=== PATIENT | male | born 1945 | race Caucasian/White ===

== ENCOUNTER 2016-10-20 10:13 | Day surgery (SDC) | payer MEDICARE ==
[~2016-10-20] VITALS: Ht 170.2 cm; Wt 83.9 kg
--- NOTE | 2016-10-20 14:24 | Operative Note ---
Procedure/Operative Record Date of Procedure: 10/20/16 Referring physician: Dr. Patel Pre-op diagnosis: Carpal tunnel syndrome, left wrist Post-op diagnosis: Carpal tunnel syndrome, left wrist Procedure performed: Open carpal tunnel release, left wrist Surgeon: Andrea Mccollum MD Senior Android Developer(s): Patti Ramirez Anesthesia: Biers block with IV sedation Indications: Patient is a 71-year-old male with LEFT carpal tunnel syndrome with symptoms for over 2 years. EMG/NCV results confirmed moderate to severe carpal tunnel syndrome on the LEFT side. Patient failed to respond adequately to conservative management. Therefore the carpal tunnel release surgery was necessary to relieve symptoms, preserve the remaining fibers of the median nerve, improve function and decrease the pain, paresthesias and weakness and to prevent permanent nerve damage. Findings: The intraoperative findings showed the median nerve to be very tightly compressed and hyperemic. The flexor retinaculum was noted to be thick and tight. There was mild synovitis in the carpal tunnel. There was no evidence of any space-occupying lesions within the carpal tunnel. Description of procedure: On the day of the surgery the patient and his were met in the preoperative area. Patient was positively identified and the operative site was marked and initialed by me. A physical examination was performed and the chart was updated. I again discussed the procedure, risks and benefits and alternatives with the patient and his . The complications discussed include but are not limited to - bleeding, injury to nerves, blood vessels and tendons, infection, wound dehiscence [wound coming apart], incomplete relief/continued pain, persistent numbness, palmar hypersensitivity, pillar pain, DVT/PE, complex regional pain syndrome(CRPS), worsening of nerve damage, failure of the condition to improve, incomplete return of function, bowstringing of tendons, weakness of technical system analyst strength, recurrence, failure of the surgery to accomplish the desired goals, decreased use of the hand, loss of use of the arm, loss of the hand or arm, loss of life. Likely need for further surgery in the future has been discussed. I've indicated to the patient where the proposed incision would be made and also discussed the possibility of extending the incision if needed to accomplish an effective release. I have discussed how the goal of surgery is to protect the fibers which have remained healthy and hopefully reverse the symptoms of the fibers which are compromised but still recoverable. I have explained that, fibers that are permanently damaged will not recover. Patient asked appropriate questions and all have been answered by me. Patient wished to proceed with the surgery. Consent form was reviewed and signed. The patient was brought to the operating room and placed supine on the operating table. The LEFT upper extremity was placed over a side table. All the bony prominences were well-padded. The patient had a Dayan's block anesthesia and IV sedation administered by the rig welder. Please see nursing records for the total tourniquet time. The LEFT upper extremity was prepped and draped in the usual sterile fashion. A preprocedure timeout was performed as per hospital policy. The skin incision was marked using the Baldwin's landmarks, just ulnar to the thenar crease. Baldwin's landmarks were utilized and a skin incision was made parallel and just ulnar to the thenar crease with a 15 blade. Blunt tissue dissection was carried through the subcutaneous tissue down to the palmar fascia. The palmar fascia was incised with the knife to reveal the transverse carpal ligament. The transverse carpal ligament was adequately exposed and then incised with the knife just enough to expose the median nerve. We then protected the median nerve with a freer elevator and extended the incision on the ulnar aspect of the nerve using the knife. We then completed the division of the transverse carpal ligament proximally using a pair of tenotomy scissors. The transverse carpal ligament was contiguous with the antebrachial fascia- the skin was lifted up with a retractor, and the antebrachial fascia visualized and incised. A complete release proximally was confirmed by easily obtaining side to side movement of the proximal carpal tunnel segments. Attention was then directed distally. Again, we incised the distal aspect of the transverse carpal ligament using the tenotomy scissors. Fat demarcating the end of the carpal tunnel was identified and we ensured that the motor branch was not endangered by any anatomic variation. We also confirmed that we had free side to side movement of the entire transverse carpal tunnel ligament segments. Inspection of the carpal tunnel contents showed hyperemic changes in the nerve and a mild degree of synovitis of the flexor tendons. There were no space-occupying lesion within the carpal tunnel. The tourniquet was then deflated and hemostasis was obtained with the bipolar diathermy. We then irrigated the wound with normal saline and the skin was closed with a running 4-0 nylon suture. The skin and soft tissue around the incision were then infiltrated with 10 mL of 0.5 percent Marcaine for postoperative pain relief. Sterile dressings and a compression bandage was applied. The tourniquet cuff was removed from the arm. The patient was then transferred onto the [facility] and transported to the postoperative recovery area in stable condition. The swab, instrument and needle counts were correct according to the scrub team at the end of the procedure. Patient tolerated the procedure well and there were no immediate complications. Patient was discharged home with appropriate written instructions after a period of observation in the postoperative area. Follow-up in my office in 3-4 days time for change of dressings and then in 10-14 days time for removal of sutures. EBL (ml): 5 Implant: None Complications: None Specimens: None at [id number]
[2016-10-20 15:47] VITALS: BP 138/76
== END 2016-10-20 13:55 | disposition home or self-care (01) ==
LOC: SDC 10:13
PROC: 01N50ZZ Release Median Nerve, Open Approach (ICD-10-PCS; principal; 2016-10-20)
DX: G56.02 Carpal tunnel syndrome, left upper limb (principal)

== ENCOUNTER → 2016-11-03 | Outpatient (CLI) | payer MEDICARE ==
--- NOTE | 2016-11-03 17:59 | RADIOLOGY REPORT PS360 ---
MRI-C-SPINE W/O HISTORY: Neck pain with bilateral arm and leg numbness and 13 spleen. Entire left side of the body is numb. CERVICAL OSTEOPHYTE ORDERING PHYSICIAN: Chance Patel MD PATIENT AGE: 71 years COMPARISON: None TECHNIQUE: Standard multiplanar multiecho sequences are performed without contrast. 3-D MIP and myelographic images are also rendered and reviewed FINDINGS: There is normal alignment. There is prominent T1 isointensity and T2 hypointensity along the posterior aspect of the odontoid process and the body of C2 resulting in SEVERE canal stenosis at the C1-C2 level. The canal measures approximately 4 mm with severe compression upon the upper cervical cord and increased T2 signal of the cervical cord. This area of abnormal signal intensity measures 2.4 cm cephalad to caudad and 0.8 cm in AP dimension and 17 mm transverse and is somewhat more prominent toward the right but is present in both right and left aspect of the anterior canal. This is inferior to the clivus. This may represent pannus formation. C2-C3: Bulging disc with broad-based right paracentral disc protrusion: Right lateral recess narrowing abutting the anterior aspect of the cord on the right. C3-C4: Bulging disc with left-sided uncovertebral hypertrophy with left-sided foraminal narrowing. C4-C5: Degenerative disc disease with bulging disc along with facet and ligamentum flavum hypertrophy with bilateral foraminal narrowing. C5-C6: Degenerative disc disease with bulging disc along with facet and uncovertebral hypertrophy with bilateral foraminal narrowing and borderline canal stenosis secondary to the bulging disc and hypertrophy of the lamina posteriorly C6-C7: Degenerative disc disease with bulging disc with canal stenosis. There is mild impingement upon the anterior aspect of the cord with cord measuring 8 mm. C7-T1: Unremarkable. IMPRESSION: 1. Severe canal stenosis at the atlantoaxial and atlantooccipital region as described above may be related to pannus formation. Does the patient have rheumatoid arthritis?. There is severe compression of the cervical cord with canal measuring 4 mm with edema or gliosis of the cord at this level. This may be related to extensive pannus formation. Meningioma would be included in the differential diagnosis. 2. Cervical spondylosis with multilevel degenerative disc disease and facet arthritic change with bulging disc along with uncovertebral hypertrophy and foraminal narrowing as detailed above. Please see above for detailed description at each level.
== END ==
LOC: RAD 09:29
DX: M46.92 Unspecified inflammatory spondylopathy, cervical region (principal); M79.605 Pain in left leg; M46.96 Unspecified inflammatory spondylopathy, lumbar region; M25.78 Osteophyte, vertebrae